=== PATIENT | female | born 1960 | race Caucasian/White ===

== ENCOUNTER 2022-02-16 20:46 | Emergency (ER) | payer OTHER ==
[2022-02-16] MEDS ORDERED: Acetaminophen 500 MG TAB ONE (21:11)
[2022-02-16] MEDS ORDERED: Ibuprofen 800 MG TAB ONE (21:20)
== END 2022-02-16 21:20 | disposition home or self-care (01) ==
LOC: ERS 20:46
DX: U07.1 COVID-19 (principal); E78.5 Hyperlipidemia, unspecified
CPT/HCPCS: 99283